=== PATIENT | female | born 1990 | race Caucasian/White ===

== ENCOUNTER 2017-04-08 21:01 | Emergency (ER) | payer BC ==
[2017-04-08 21:29] VITALS: BP_SYST 61
[2017-04-08] MEDS ORDERED: traMADol 50 MG Tab PO ONE (22:46)
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
--- NOTE | 2017-04-12 11:14 | CR ---
INDICATION: Pain, bruising, swelling, injury. COMPARISON: None. LEFT HAND SERIES: Fracture of the proximal metaphysis 5th metacarpal with approximately shaft width lateral displacement. Mild apex medial angulation deformity and dorsal angulation deformity. No callus formation. No other acute fracture, dislocation, destructive change. No inflammatory, arthritic change. IMPRESSION: Acute fracture of the proximal 5th metacarpal representing boxer fracture with mild malalignment. MTDD
== END 2017-04-08 21:31 | disposition home or self-care (01) ==
LOC: FB.ED 21:01
DX: S62.317A Displaced fracture of base of fifth metacarpal bone, left hand, initial encounter for closed fracture (principal); Y04.0XXA Assault by unarmed brawl or fight, initial encounter
CPT/HCPCS: 29125; 73130; 99283; A9270

== ENCOUNTER 2021-02-01 06:12 | Emergency (ER) | payer OTHER ==
[2021-02-01] MEDS ORDERED: Sodium Chloride 0.9% 10 ML Syringe FLUSH PRN (06:20)
[2021-02-01] MEDS ORDERED: Iopamidol 755 Mg/ML 75 ML Bottle IV ONE (06:36)
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
[2021-02-01 06:56] VITALS: BP 129/91; PULSE 86
[2021-02-01] MEDS ORDERED: Sodium Chloride 0.9% 500 ML IV ONE (07:24)
[2021-02-01] MEDS ORDERED: Ketorolac 30 MG/ML SDV IVPUSH ONE (07:24)
[2021-02-01] MEDS ORDERED: fentaNYL 100 MCG/2 ML SDV IVPUSH ONE (09:59)
== END 2021-02-01 11:35 | disposition home or self-care (01) ==
LOC: FB.ED 06:12
DX: S16.1XXA Strain of muscle, fascia and tendon at neck level, initial encounter (principal); S70.01XA Contusion of right hip, initial encounter; S90.31XA Contusion of right foot, initial encounter; S00.01XA Abrasion of scalp, initial encounter; V49.40XA Driver injured in collision with unspecified motor vehicles in traffic accident, initial encounter
CPT/HCPCS: 36415; 70450; 70486; 70498; 71045; 71260; 72125; 72141; 72170; 73630; 74177; 80053; 80307; 84702; 85025; 86850; 86900; 86901; 93005; 93010; 96374; 96375; 99284; 99285; J1885; J3010; J7040; Q9967